=== PATIENT | female | born 1995 | race Two or more races ===

== ENCOUNTER 2023-11-24 12:32 | Day surgery (SDC) | payer OTHER ==
[2023-11-22 10:29] VITALS: BMI 25.0
[2023-11-24] MEDS ORDERED: LIDOCAINE HCL/PF 2% SDV 5ML VIAL ONE (12:48)
[2023-11-24 13:17] VITALS: RESP 16; TEMP 97.6
[2023-11-24 14:58] VITALS: BP 114/65; PULSE 81
== END 2023-11-24 13:50 | disposition home or self-care (01) ==
LOC: FASU-ENDO 12:32
PROVIDERS: ATTEND Internal Medicine Gastroenterology
PROC: 0DB68ZX Excision of Stomach, Via Natural or Artificial Opening Endoscopic, Diagnostic (ICD-10-PCS; 2023-11-24)
PROC: 0DB48ZX Excision of Esophagogastric Junction, Via Natural or Artificial Opening Endoscopic, Diagnostic (ICD-10-PCS; 2023-11-24)
PROC: 0DB98ZX Excision of Duodenum, Via Natural or Artificial Opening Endoscopic, Diagnostic (ICD-10-PCS; principal; 2023-11-24 12:58)
DX: K29.50 Unspecified chronic gastritis without bleeding (principal); K20.90 Esophagitis, unspecified without bleeding; R10.13 Epigastric pain; Z98.84 Bariatric surgery status
CPT/HCPCS: 81025; 88305-TC; 88342-TC